=== PATIENT | male | born 1950 | race Caucasian/White ===

== ENCOUNTER 2020-06-08 04:56 | Emergency (ER) | payer OTHER, MEDICARE ==
[~2020-06-08] VITALS: Ht 185.4 cm; Wt 59.0 kg
[2020-06-08 05:00] VITALS: BP 112/76
--- NOTE | 2020-06-08 05:00 | NUR ---
PT TAKEN TO BED 2 VIA GURNEY BY EMS.
--- NOTE | 2020-06-08 05:17 | NUR ---
69 Y/O M BIB EMS C/O LEFT ABD PAIN X 1 DAY. PT STATES HE'S HAD MULTIPLE FALLS, LAST FALL WAS 10 DAYS AGO. NO DEFORMITIES WAS OBSERVED. RR EVEN AND UNLABORED. PT HAS BRAIN CANCER AND IS TAKING CHEMOTHERAPY AND RADIATION, LAST RADIATION WAS YESTERDAY AND BRAIN TUMOR WAS REMOVED 3 WEEKS AGO. BED IN LOWEST POSITION, SIDE RAIL UP X1. WILL CONTINUE TO MONITOR. MHX: BRAIN CANCER, HTN, HIGH CHOLESTEROL, DIABETES ALLERGIES: PCN, IODINE
[2020-06-08] MEDS ORDERED: HYDROcodone/APAP 5/325 MG 1 TAB TAB PO ONE (05:20)
[2020-06-08] MEDS ORDERED: MORPHINE SULFATE 4 MG/ML SYR IVP ONE (05:25)
--- NOTE | 2020-06-08 05:26 | NUR ---
PT TAKEN TO CT VIA RELIUD.
--- NOTE | 2020-06-08 06:14 | NUR ---
BLOOD OBTAINED AND WALKED OVER TO LAB.
[2020-06-08 06:19] LABS: BASOPHILS % (AUTO) 0.5 % (0.0-2.0); EOSINOPHILS # (AUTO) 0.2 K/uL (0-0.4); EOSINOPHILS % (AUTO) 2.1 % (0.0-4.0); HEMATOCRIT 40.9 % (36-52); HEMOGLOBIN 13.3 g/dL (12.0-18.0); LYMPHOCYTES # (AUTO) 1.1 K/uL (2.0-11.5); LYMPHOCYTES % (AUTO) 11.2 % (20.5-51.1); MEAN CORPUSCULAR HEMOGLOBIN 29 pg (27-31); MEAN CORPUSCULAR HGB CONC 33 g/dL (33-37); MEAN CORPUSCULAR VOLUME 90.2 fL (80-94); MONOCYTES # (AUTO) 0.7 K/uL (0.8-1.0); MONOCYTES % (AUTO) 6.9 % (1.7-9.3); NEUTROPHILS # (AUTO) 7.9 K/uL (1.8-7.7); NEUTROPHILS % (AUTO) 79.3 % (42.2-75.2); PLATELET COUNT (AUTO) 275 K/uL (140-450); RED BLOOD CELL COUNT(AUTO) 4.53 MIL/uL (4.20-6.10); RED CELL DISTRIBUTION WIDTH 13.8 % (11.6-13.7); WHITE BLOOD COUNT (AUTO) 9.9 K/uL (4.8-10.8)
--- NOTE | 2020-06-08 06:47 | NUR ---
PT RESTING IN BED, SITTING UPRIGHT. RR EVEN AND UNLABORED. NO NEW CONCERNS AT THIS TIME. BED IN LOWEST POSITION, SIDE RAIL UP X1. WILL CONTINUE TO MONITOR.
[2020-06-08 06:50] LABS: ANION GAP 15.3 (8-16); CARBON DIOXIDE 28.6 mmol/L (21-32); CREATININE 2.8 mg/dL (0.6-1.3); POTASSIUM 4.9 mmol/L (3.5-5.1)
--- NOTE | 2020-06-08 07:21 | NUR ---
REPORT RECEIVED FROM ENRIQUE ESPINAL, TRANSFER OF CARE AT THIS TIME
--- NOTE | 2020-06-08 07:22 | NUR ---
PT RESTING WITH EYES CLOSED, BREATHING EVEN AND UNLABORED
[2020-06-08] MEDS ORDERED: NACL 0.9% 1,000 ML IV ONE (07:35)
[2020-06-08] MEDS ORDERED: ONDANSETRON 4 MG/2 ML VIAL IVP ONE (07:35)
[2020-06-08 08:50] VITALS: BP 96/62
--- NOTE | 2020-06-08 08:50 | NUR ---
Patient discharged with v/s stable. Written and verbal after care instructions about flank pain and myalgia given and explained. Patient alert, oriented and verbalized understanding of instructions. Ambulatory with steady gait. All questions addressed prior to discharge. ID band removed. Patient advised to follow up with PMD. Rx of hycet given. Patient educated on indication of medication including possible reaction and side effects. Opportunity to ask questions provided and answered.
== END 2020-06-08 08:50 | disposition home or self-care (01) ==
LOC: MED 04:56
DX: R10.12 Left upper quadrant pain (principal); E11.9 Type 2 diabetes mellitus without complications; E78.00 Pure hypercholesterolemia, unspecified; I10 Essential (primary) hypertension; Z88.0 Allergy status to penicillin; Z91.041 Radiographic dye allergy status; Z85.9 Personal history of malignant neoplasm, unspecified
CPT/HCPCS: 36415; 71045; 74176; 80048; 84484; 85025; 96374; 96375; 99285; J2270; J2405; Q0092; J7030